=== PATIENT | female | born 1970 | race Caucasian/White ===

== ENCOUNTER 2017-08-21 09:21 | Emergency (ER) | payer OTHER ==
[~2017-08-21] VITALS: Ht 167.6 cm; Wt 64.4 kg
[~2017-08-21 09:21] MED LIST: CYCL10 PO; GABA300 PO; LEVSOD125 PO
[2017-08-21] MEDS ORDERED: MELO7.5 PO (09:39)
[2017-08-21] MEDS ORDERED: PSEU120ER PO (09:49)
[2017-08-21] MEDS ORDERED: ALBU90OI6 INH (09:49)
[2017-08-21] MEDS ORDERED: Prednisone20 MG PO (09:49)
[2017-08-21] MEDS ORDERED: AZIT250 PO (09:49)
== END 2017-08-21 10:09 | disposition home or self-care (01) ==
LOC: ER 09:21
DX: J20.9 Acute bronchitis, unspecified (principal); Z87.891 Personal history of nicotine dependence; Z88.0 Allergy status to penicillin; Z88.6 Allergy status to analgesic agent; Z79.899 Other long term (current) drug therapy; Z79.52 Long term (current) use of systemic steroids
CPT/HCPCS: 99283